=== PATIENT | male | born 1950 | race Caucasian/White ===

== ENCOUNTER 2017-02-24 09:45 | Day surgery (SDC) | payer OTHER, MEDICAID ==
[~2017-02-24] VITALS: Ht 170.2 cm; Wt 48.0 kg
[~2017-02-24 09:45] MED LIST: CEFAZOLIN 1 GM/50 ML (PMX) 50 ML IVPB SCH; SOD CHLORIDE 0.9% 1,000 ML IV SCH
[2017-02-24 12:07] VITALS: BP 138/82; PULSE 80; RESP 21
[2017-02-24 12:10] VITALS: Ht 170.2 cm; Wt 48.0 kg
[2017-02-24 12:12] LABS: ALBUMIN 3.9 g/dl (3.3-4.9); ALBUMIN/GLOBULIN RATIO 1.21; BASOPHILS % 0.4 % (0.0-2.0); BILIRUBIN,INDIRECT 0.8 mg/dl (0-1.1); BILIRUBIN,TOTAL 0.8 mg/dl (0.2-1.3); EOSINOPHILS % 0.4 % (0.0-7.0); HEMATOCRIT 35.5 % (42.0-52.0); HEMOGLOBIN 11.1 g/dl (14.0-18.0); MEAN CORPUSCULAR HEMOGLOBIN 25.3 pg (29.0-33.0); MEAN CORPUSCULAR HGB CONC 31.3 g/dl (32.0-37.0); MEAN CORPUSCULAR VOLUME 81.1 fl (82.0-101.0); MEAN PLATELET VOLUME 8.9 fl (7.4-10.4); MONOCYTE # 0.3 10^3/ul (0.3-0.9); MONOCYTES % 4.8 % (0.0-11.0); NEUTROPHIL # 4.1 10^3/ul (1.6-7.5); PLATELET COUNT 229 10^3/UL (140-415); RED BLOOD COUNT 4.38 10^6/ul (4.70-6.10); TOTAL PROTEIN 7.1 g/dl (6.1-8.1); WHITE BLOOD COUNT 5.4 10^3/ul (4.8-10.8)
[2017-02-24 12:23] LABS: CALCIUM 9.1 mg/dl (8.4-10.2); CREATININE 0.94 mg/dl (0.61-1.24)
--- NOTE | 2017-02-24 12:25 | RADRPT ---
PROCEDURE: XR Chest. CLINICAL INDICATION: Preoperative TECHNIQUE: Single frontal view of the chest was obtained COMPARISON: None FINDINGS: The heart and mediastinum are within normal limits. The lungs are clear. There is no pleural effusion or pneumothorax. RPTAT: AA IMPRESSION: No acute disease. .Aguilar Medina MD, Date Time Electronically viewed and signed by .Aguilar Medina MD, on 02/24/2017 12:25 .S/
[2017-02-24 12:33] LABS: INR 1.06; PROTIME 13.8 Sec (12.2-14.2); PT RATIO 1.1
[2017-02-24 12:34] LABS: PARTIAL THROMBOPLASTIN TIME 30.9 Sec (25.0-35.0)
--- NOTE | 2017-02-24 13:19 | RADRPT ---
Vent Rate: 72 bpm RR Interval: 0 msec W[place] Interval: 130 msec QRS Duration: 94 msec QT Interval: 394 msec QTC Interval: 431 msec P-R-T [place]: 58 - -40 - 71 degrees Normal sinus rhythm Left axis deviation Incomplete right bundle branch block Abnormal ECG Electronically Signed By: Dustin Hoffman [id number]
[2017-02-24] MEDS ORDERED: NEOSTIGMINE 3 MG/3 ML SYRINGE ONE (14:36)
[2017-02-24] MEDS ORDERED: ROCURONIUM 50 MG INJ ONE (14:36)
[2017-02-24] MEDS ORDERED: CEFAZOLIN 1 GM INJ ONE (14:36)
[2017-02-24] MEDS ORDERED: PROPOFOL 20 ML ONE (14:36)
[2017-02-24] MEDS ORDERED: GLYCOPYRROLATE 0.4 MG INJ ONE (14:36)
[2017-02-24] MEDS ORDERED: ONDANSETRON 4 MG INJ ONE (14:37)
[2017-02-24] MEDS ORDERED: MIDAZOLAM 1 MG/ML 2 ML INJ ONE (14:37)
[2017-02-24] MEDS ORDERED: DEXAMETHASONE 4 MG/ML 1 ML INJ ONE (14:37)
[2017-02-24] MEDS ORDERED: FENTAnyl 50 MCG/ML VIAL ONE (14:37)
[2017-02-24] MEDS ORDERED: BUPIVACAINE 0.5%/EPI (SDV) 30 ML INJ ONE (15:07)
--- NOTE | 2017-02-24 15:20 | SIPON ---
Date/Time of Note Date/Time of Note DATE: 02/24/17 TIME: 15:19 Operative Report Preoperative Diagnosis Bilateral ulcerated skin lesions and a right anterior thigh mass Postoperative Diagnosis Same Operation/Procedure Performed Debridement of bilateral lower extremity skin lesions and excisional biopsy of a right anterior thigh mass Surgeon see signature line assistant front desk manager Dr Miranda Anesthesia: general Estimated blood loss: 10 - 50 ml's Transfusion Required none Specimen Right anterior thigh mass Grafts/Implants none Complications none JAVAN RAMIREZ MD Feb 24, 2017 15:20
[2017-02-24] MEDS ORDERED: EPHEDrine SULFATE 50 MG/5 ML SYG IV PRN (15:30)
[2017-02-24] MEDS ORDERED: LABETALOL HCL 20MG INJ IV PRN (15:30)
[2017-02-24] MEDS ORDERED: MEPERIDINE 25 MG INJ IV PRN (15:30)
[2017-02-24] MEDS ORDERED: FENTAnyl 50 MCG/ML VIAL IV PRN ×3 (15:30)
[2017-02-24] MEDS ORDERED: HYDROmorphONE (0.2 MG/ML) 10ML SYG IV PRN ×3 (15:30)
[2017-02-24] MEDS ORDERED: OXYCODONE/ACETAMINOPHEN (5/325) TAB PO PRN ×2 (15:30)
[2017-02-24] MEDS ORDERED: ONDANSETRON 4 MG INJ IV PRN (15:30)
[2017-02-24] MEDS ORDERED: ALBUTEROL 0.083% (NEB) 2.5 MG/3 ML AMP HHN PRN (15:30)
[2017-02-24] MEDS ORDERED: DIPHENHYDRAMINE 50 MG INJ IV PRN (15:30)
[2017-02-24] MEDS ORDERED: TRIMETHOBENZAMIDE 100 MG/ML VIAL IM PRN (15:30)
[2017-02-24] MEDS ORDERED: MIDAZOLAM 1 MG/ML 2 ML INJ IV PRN (15:30)
[2017-02-24] MEDS ORDERED: IPRATROPIUM (NEB) 0.5 MG/2.5 ML AMP HHN PRN (15:30)
[2017-02-24] MEDS ORDERED: hydrALAzine 20 MG INJ IV PRN (15:30)
[2017-02-24 15:36] VITALS: BP 147/80; PULSE 74; RESP 14
[2017-02-24 15:41] VITALS: BP 161/84; PULSE 82; RESP 14
[2017-02-24 15:46] VITALS: BP 151/86; PULSE 78; RESP 14
[2017-02-24 15:51] VITALS: BP 157/81; PULSE 95; RESP 16
[2017-02-24 16:05] VITALS: BP 151/81; PULSE 66; RESP 16
--- NOTE | 2017-02-24 16:53 | OPR ---
DATE OF OPERATION: 02/24/2017 PREOPERATIVE DIAGNOSIS: Bilateral lower extremity skin lesions with ulceration. POSTOPERATIVE DIAGNOSIS: Bilateral lower extremity skin lesions with ulceration. PROCEDURE: Debridement of bilateral lower extremity skin lesions with excisional biopsy of a right anterior thigh mass. ANESTHESIA: General. ANESTHESIOLOGIST: Jose Martin Hancock MD SURGEON: Robert Marc MD SECURITY ARCHITECT: Kristal Miranda MD INDICATIONS FOR PROCEDURE: The patient is a debilitated 66-year-old male who presented with longsta nding lower extremity skin lesions in various stages of ulceration. Of note, the largest lesion, wh ich is on the right anterior thigh, had exophytic tissue highly worrisome for possible malignancy. The patient was counseled as to the need for cleaning and debridement of his lesions, as well as exc isional biopsy of the right anterior thigh mass. He consented and was scheduled for surgery. DESCRIPTION OF PROCEDURE: The patient was brought to the operating theater, placed under general an esthesia. The dressings were removed. There were a total of 5 lesions in various stages of healing . There were bilateral pretibial lesions. There was a left anterior thigh lesion with granulation tissue and a partially healed lesion just inferior on the left side to the above described bleeding lesion. On the right anterior thigh, there was a large fungating lesion with ulceration. After cody aning and debriding all of the lesions, Dr. Marc directed his attention to the right anterior thigh lesion. Using a 15 blade scalpel, a generous portion of this exophytic mass was excised down into the subcutaneous tissue. It was then transected using cautery and sent for pathologic analysis. Th e bleeding was then controlled with cautery. The area was then infiltrated with 0.5% Marcaine local anesthetic with epinephrine. At this point, sterile dressings were applied to all the lesions and the procedure was concluded. The patient tolerated the procedure well. The estimated blood loss wa s approximately 20 mL. There were no complications and the patient was transported in central hospital[facility] ion to the recovery room. Dictated By: ROBERT SIMENTAL/INDU Conf#: [id number] DID#: [id number]
== END 2017-02-24 17:00 | disposition home or self-care (01) ==
LOC: SDS 09:45
PROVIDERS: ATTEND Surgery Surgical Oncology
DX: C44.712 Basal cell carcinoma of skin of right lower limb, including hip (principal)
CPT/HCPCS: 11404; 71010; 80053; 85025; 85610; 85730; 87070; 87075; 87102; 88307; 93005; J0690; J1100; J2250; J2405; J2710; J3010